=== PATIENT | female | born 1965 | race Two or more races ===

== ENCOUNTER 2020-06-18 09:50 | Day surgery (SDC) | payer OTHER ==
[~2020-06-18] VITALS: Ht 167.6 cm; Wt 76.0 kg
[~2020-06-18 09:50] MED LIST: CIPR500 PO; OXYASA5T PO
[2020-06-18] MEDS ORDERED: CITA20 (10:12)
[2020-06-20] MEDS ORDERED: PROP10 PO (14:52)
[2020-06-20] MEDS ORDERED: MULTIPLE VITAM1 EACH PO (14:52)
[2020-06-20] MEDS ORDERED: TRAZ50 PO (14:52)
[2020-06-20] MEDS ORDERED: AMIT25 PO (14:52)
[2020-06-20] MEDS ORDERED: LORA10ER PO (14:53)
[2020-06-20] MEDS ORDERED: ALPR.25 PO (14:53)
== END 2020-06-18 12:10 | disposition home or self-care (01) ==
LOC: ORSCSDS 09:50
PROVIDERS: Internal Medicine Gastroenterology
PROC: 0DB78ZX Excision of Stomach, Pylorus, Via Natural or Artificial Opening Endoscopic, Diagnostic (ICD-10-PCS; principal; 2020-06-18 11:00)
PROC: 0D758ZZ Dilation of Esophagus, Via Natural or Artificial Opening Endoscopic (ICD-10-PCS; principal; 2020-06-18 11:00)
PROC: 0DBP8ZX Excision of Rectum, Via Natural or Artificial Opening Endoscopic, Diagnostic (ICD-10-PCS; principal; 2020-06-18 11:00)
DX: Z12.11 Encounter for screening for malignant neoplasm of colon (principal); K22.2 Esophageal obstruction; R13.10 Dysphagia, unspecified; D12.8 Benign neoplasm of rectum; K44.9 Diaphragmatic hernia without obstruction or gangrene; K74.60 Unspecified cirrhosis of liver; K29.70 Gastritis, unspecified, without bleeding; K64.8 Other hemorrhoids; Z87.891 Personal history of nicotine dependence; Z79.899 Other long term (current) drug therapy
CPT/HCPCS: 88305; 88342; J2250; J2704; J7120

== ENCOUNTER 2020-06-26 12:24 | Day surgery (SDC) | payer OTHER ==
[~2020-06-26] VITALS: Ht 167.6 cm; Wt 76.8 kg
[~2020-06-26 12:24] MED LIST changes: +ALPR.25 PO; +AMIT25 PO; +CITA20 PO; +LORA10ER PO; +MULTIPLE VITAM1 EACH PO; +PROP10 PO; +TRAZ50 PO
[2020-06-26] MEDS ORDERED: IBUP800 PO (12:44)
--- NOTE | 2020-06-26 16:07 | NUR ---
06/26/20 4407 Mariam Guerra PT DENIES PAIN IN SDU R/T NUMBNESS FROM NERVE BLOCK HOWEVER REQUESTS TO HAVE HER PAIN MEDICATION BEFORE DISCHARGE. PT HAS A LONG DRIVE HOME TO [place].
== END 2020-06-26 16:35 | disposition home or self-care (01) ==
LOC: ORSCSDS 12:24
PROVIDERS: Orthopaedic Surgery
PROC: 0SBC4ZZ Excision of Right Knee Joint, Percutaneous Endoscopic Approach (ICD-10-PCS; principal; 2020-06-26 13:30)
DX: S83.241A Other tear of medial meniscus, current injury, right knee, initial encounter (principal); M94.261 Chondromalacia, right knee; Z87.891 Personal history of nicotine dependence; Z79.899 Other long term (current) drug therapy
CPT/HCPCS: A9270-GY; C1713; J0171; J0690; J1100; J1885; J2250; J2370; J2405; J2704; J2795; J3010; J7120

== ENCOUNTER → 2020-11-21 | Outpatient (CLI) | payer OTHER ==
[~2020-11-21] MED LIST changes: +IBUP800 PO
[2020-11-21 17:04] LABS: Body Fluid Crystals NEG (NEGATIVE)
[2020-11-21 17:24] LABS: BODY FLUID RBC 0.003 M/mm3 (0-0); RBC Count, Synovial Fluid 3000 /mm3 (0-0); WBC Count, Synovial Fluid 308 /mm3 (0-180)
[2020-11-21 18:06] LABS: Lymphs, Synovial Fluid 36 % (0-15); Monocytes/Macrophages, Synovia 36 % (0-65); Neutrophils, Synovial Fluid 28 % (0-24)
[2020-11-21 18:24] LABS: Appearance, Synovial Fluid Clear (Clear); Color, Synovial Fluid Yellow (None-P Yel)
== END | disposition home or self-care (01) ==
LOC: LAB SHORT 16:51 → LAB 16:51
PROVIDERS: Orthopaedic Surgery
DX: M25.411 Effusion, right shoulder (principal)
CPT/HCPCS: 89051; 89060

== ENCOUNTER 2021-06-04 08:14 | Day surgery (SDC) | payer OTHER ==
[~2021-06-04] VITALS: Ht 170.2 cm; Wt 76.9 kg
[2021-06-04] MEDS ORDERED: BUPR100 (08:44)
[2021-06-04] MEDS ORDERED: VICODIN HP 10-1 EAC1 (08:44)
[2021-06-04] MEDS ORDERED: TRAZ50 (08:44)
[2021-06-04] MEDS ORDERED: 1/2 NS 250ml250 ML (08:45)
[2021-06-04] MEDS ORDERED: IBUP200 (08:45)
--- NOTE | 2021-06-04 09:48 | NUR ---
06/04/21 0948 Lana Patino 9:46- RN NOTIFIED DR. EASON PT CHEWING GUM WHEN ADMITTING AND LAST TO DRINK AT 0700 AM
--- NOTE | 2021-06-04 11:06 | NUR ---
06/04/21 1106 Martha Flood 1MG OF EPI ADDED TO FIRST 3 BAGS OF LR USED FOR JOINT IRRIGATION.
--- NOTE | 2021-06-04 12:44 | NUR ---
06/04/21 1243 Huang Palacios TOOK OVER CARE FOR PT AT AROUND 1240 TODAY 06/04/21. PT RESTING ON THE RECLINER SNACKING. FAMILY AT CHAIRSIDE. PT VS WNL. POLAR PACK ON CONTINOUS. CALL LIGHT WITHIN REACH. WILL CONTINUE TO MONITOR.
== END 2021-06-04 13:35 | disposition home or self-care (01) ==
LOC: ORSCSDS 08:14
PROVIDERS: Orthopaedic Surgery
PROC: 0LM14ZZ Reattachment of Right Shoulder Tendon, Percutaneous Endoscopic Approach (ICD-10-PCS; principal; 2021-06-04 10:00)
PROC: 0RNJ4ZZ Release Right Shoulder Joint, Percutaneous Endoscopic Approach (ICD-10-PCS; principal; 2021-06-04 10:00)
PROC: 0LS34ZZ Reposition Right Upper Arm Tendon, Percutaneous Endoscopic Approach (ICD-10-PCS; principal; 2021-06-04 10:00)
DX: M75.121 Complete rotator cuff tear or rupture of right shoulder, not specified as traumatic (principal); M75.21 Bicipital tendinitis, right shoulder; M75.41 Impingement syndrome of right shoulder; M19.011 Primary osteoarthritis, right shoulder; B19.20 Unspecified viral hepatitis C without hepatic coma; F41.8 Other specified anxiety disorders; F43.10 Post-traumatic stress disorder, unspecified; Z79.899 Other long term (current) drug therapy; E66.9 Obesity, unspecified; Z68.34 Body mass index [BMI] 34.0-34.9, adult
CPT/HCPCS: C1713; J0171; J0690; J1100; J1885; J2250; J2405; J2704; J3010; J7120

== ENCOUNTER → 2023-02-23 | Outpatient (CLI) | payer OTHER ==
[~2023-02-23] MED LIST changes: +1/2 NS 250ml250 ML; +BUPR100; +IBUP200; +TRAZ50; +VICODIN HP 10-1 EAC1
== END | disposition home or self-care (01) ==
LOC: LAB SHORT 17:08 → LAB 17:08
DX: N76.0 Acute vaginitis (principal)
CPT/HCPCS: 87086

== ENCOUNTER 2023-08-28 12:29 | Day surgery (SDC) | payer OTHER ==
[~2023-08-28] VITALS: Ht 167.6 cm; Wt 73.1 kg
[~2023-08-28 12:29] MED LIST changes: +Atropine Sulfate 0.1 MG/ML 10ML SYR ONE; +Glycopyrrolate 0.2 MG/ML 1MLVIAL ONE; +Lactated Ringer's 1,000 ML IV ONE; +Lidocaine 2% 5 ML SDV ONE; +Lidocaine HCl/Pf 1% 5 ML VIAL ONE; +Ondansetron HCl 2 MG / ML 2ML Vial ONE; +ePHEDrine Sulfate 50 MG/ML 1ML Injection ONE; +propofoL 50 ML IV ONE
[2023-08-28] MEDS ORDERED: ATOR10 (13:06)
[2023-08-28] MEDS ORDERED: Diovan320 MG (13:06)
[2023-08-28] MEDS ORDERED: MERIBIN5 MG (13:06)
[2023-08-28] MEDS ORDERED: Toprol Xl25 MG (13:06)
[2023-08-28] MEDS ORDERED: TOCO1000 (13:07)
[2023-08-28] MEDS ORDERED: MULTI VITAMIN200 MCG (13:08)
[2023-08-28] MEDS ORDERED: [UNRECOGNIZED DRUG - CODE] (13:08)
[2023-08-28] MEDS ORDERED: ASPIR 8181 M1 (13:09)
[2023-08-28] MEDS ORDERED: Lactated Ringer's 1,000 ML IV ONE (13:23)
[2023-08-28 14:15] VITALS: BP 118/75
== END 2023-08-28 14:12 | disposition home or self-care (01) ==
LOC: ORSCSDS 12:29
PROVIDERS: Specialist
PROC: 0DB68ZX Excision of Stomach, Via Natural or Artificial Opening Endoscopic, Diagnostic (ICD-10-PCS; principal; 2023-08-28 13:45)
PROC: 0DB58ZX Excision of Esophagus, Via Natural or Artificial Opening Endoscopic, Diagnostic (ICD-10-PCS; principal; 2023-08-28 13:45)
DX: K21.9 Gastro-esophageal reflux disease without esophagitis (principal); K74.60 Unspecified cirrhosis of liver; K44.9 Diaphragmatic hernia without obstruction or gangrene; Z79.899 Other long term (current) drug therapy
CPT/HCPCS: 88305; 88342; J0461; J2001; J2405; J2704; J7120

== ENCOUNTER 2025-02-27 06:08 | Day surgery (SDC) | payer OTHER ==
[~2025-02-27] VITALS: Ht 167.6 cm; Wt 71.3 kg
[~2025-02-27 06:08] MED LIST changes: +ASPIR 8181 M1; +ATOR10; -Atropine Sulfate 0.1 MG/ML 10ML SYR ONE; +Diovan320 MG; -Glycopyrrolate 0.2 MG/ML 1MLVIAL ONE; -Lactated Ringer's 1,000 ML IV ONE; +Lidocaine 1%-Epineph 1:100000 20 ML MDV ONE; -Lidocaine 2% 5 ML SDV ONE; -Lidocaine HCl/Pf 1% 5 ML VIAL ONE; +MERIBIN5 MG; +MULTI VITAMIN200 MCG; -Ondansetron HCl 2 MG / ML 2ML Vial ONE; +Sodium Bicarb 8.4% 1 MEQ/ML 50 ML Vial ONE; +TOCO1000; +Toprol Xl25 MG; +[UNRECOGNIZED DRUG - CODE]; -ePHEDrine Sulfate 50 MG/ML 1ML Injection ONE; -propofoL 50 ML IV ONE
[2025-02-27] MEDS ORDERED: CeFAZolin Sodium 2,000 MG VIAL ONE (06:32)
[2025-02-27] MEDS ORDERED: NS 500 ML IV ONE ×2 (06:32→06:52)
[2025-02-27] MEDS ORDERED: HAIR, SKIN AND1 EAC3 PO (06:43)
[2025-02-27] MEDS ORDERED: OMEP20ER PO (07:06)
[2025-02-27] MEDS ORDERED: NITR.4SL SL (07:06)
[2025-02-27] MEDS ORDERED: ACYC800 PO (07:11)
--- NOTE | 2025-02-27 07:18 | NUR ---
02/27/25 0718 Moon Sweeney TIME OUT PERFORMED AT BEDSIDE WITH DR JARVIS AT 0711 IMMEDIATELY PRIOR TO INJECTION OF 7ML OF 10ML SOLUTION CONSISTING OF 9ML 1% LIDOCAINE WITH EPI [id number] AND 1ML 8.4% SODIUM BICARBONATE INTO R HAND. PT TOLERATED PROCEDURE WITHOUT ANY DIFFICULTIES.
[2025-02-27 08:18] VITALS: BP 113/84
== END 2025-02-27 08:10 | disposition home or self-care (01) ==
LOC: ORSCSDS 06:08
PROVIDERS: Orthopaedic Surgery
PROC: 0JBG0ZX Excision of Right Lower Arm Subcutaneous Tissue and Fascia, Open Approach, Diagnostic (ICD-10-PCS; principal; 2025-02-27 07:30)
PROC: 01N54ZZ Release Median Nerve, Percutaneous Endoscopic Approach (ICD-10-PCS; principal; 2025-02-27 07:30)
DX: G56.03 Carpal tunnel syndrome, bilateral upper limbs (principal); I10 Essential (primary) hypertension; B19.20 Unspecified viral hepatitis C without hepatic coma; D72.819 Decreased white blood cell count, unspecified; I25.10 Atherosclerotic heart disease of native coronary artery without angina pectoris; I25.2 Old myocardial infarction; K21.9 Gastro-esophageal reflux disease without esophagitis; F41.9 Anxiety disorder, unspecified; F32.A Depression, unspecified; F43.10 Post-traumatic stress disorder, unspecified; Z79.82 Long term (current) use of aspirin; Z79.899 Other long term (current) drug therapy
CPT/HCPCS: 88304; 88313; J0690; J2704; J7040